=== PATIENT | female | born 1980 | race Two or more races ===

== ENCOUNTER → 2017-12-16 | Emergency (ER) | payer OTHER ==
[~2017-12-16] VITALS: Ht 142.2 cm; Wt 50.3 kg
[~2017-12-16] MED LIST: OSEL75CA PO; PRENATABS FA TA1 TAB PO; TUSSI PRES-B L120 M1 PO; ZITHROMAX200 MG PO
== END | disposition home or self-care (01) ==
LOC: ER 06:44
DX: J11.1 Influenza due to unidentified influenza virus with other respiratory manifestations (principal); R50.9 Fever, unspecified